=== PATIENT | female | born 1970 | race Caucasian/White ===

== ENCOUNTER → 2024-07-21 08:37 | Outpatient (REF) | payer OTHER, SELFPAY | LOC: RAD 08:37 | PROVIDERS: ATTENDING PHYSICIAN Internal Medicine Gastroenterology; FAMILY PHYSICIAN Family Medicine | DX: R13.19 Other dysphagia (principal) | CPT/HCPCS: 74246 ==

== ENCOUNTER 2025-05-09 06:28 | Day surgery (SDC) | payer OTHER, SELFPAY | END 2025-05-09 10:36 | disposition home or self-care (01) | LOC: GI 06:28 | PROVIDERS: ATTENDING PHYSICIAN Internal Medicine Gastroenterology | DX: Z12.11 Encounter for screening for malignant neoplasm of colon (principal); D13.1 Benign neoplasm of stomach | CPT/HCPCS: G0105 ==